=== PATIENT | male | born 1945 | race Caucasian/White ===

== ENCOUNTER 2017-08-11 10:40 | Inpatient (IN) | payer OTHER ==
[2017-08-11 11:03] LABS: % IMMATURE GRANULYOCYTES 0.7 % (0.0-1.1); ABSOLUTE IMMATURE GRANULOCYTES 0.07 10^3/uL (0.00-0.10); ADD DIFF? NO; ADD MORPH? NO; ADD SCAN? NO; ATYPICAL LYMPHOCYTE FLAG 10 (0-99); FRAGMENT RBC FLAG 0 (0-99); HEMATOCRIT 45.9 % (40.0-51.0); HEMOGLOBIN 15.3 g/dL (13.7-17.5); LEFT SHIFT FLG 10 (0-99); LIPEMIA HEMOLYSIS FLAG 80 (0-99); MEAN CELL HEMOGLOBIN 33.1 pg (27.9-34.1); MEAN CELL HEMOGLOBIN CONCENTR. 33.3 g/dL (32.4-36.7); MEAN CELL VOLUME 99.4 fL (81.5-99.8); MEAN PLATELET VOLUME 9.3 fL (8.7-11.7); PLATELET CLUMPS FLAG 0 (0-99); PLATELET COUNT 178 10^3/uL (150-400); RED BLOOD CELL COUNT 4.62 10^6/uL (4.40-6.38); RED CELL DISTRIBUTION WIDTH 14.6 % (11.5-15.2)
--- NOTE | 2017-08-11 11:11 | CPEKG ---
Heart Rate: 128 RR Interval: 469 P-R Interval: 116 QRSD Interval: 80 QT Interval: 320 QTC Interval: 467 P [place]: 77 QRS [place]: -21 T Wave [place]: 86 EKG Severity - OTHERWISE NORMAL ECG - EKG Impression: SINUS TACHYCARDIA EKG Impression: BORDERLINE LEFT AXIS DEVIATION Electronically Signed By: Marya Mckeon 11-Aug-2017 14:52:48
[2017-08-11 11:15] LABS: ANION GAP 15 mEq/L (8-16); CALCIUM 8.9 mg/dL (8.5-10.4); CARBON DIOXIDE 27 mEq/l (22-31); CHLORIDE 98 mEq/L (97-110); CREATININE 1.3 mg/dL (0.7-1.3); GLOMERULAR FILTRATION RATE 54; GLUCOSE 108 mg/dL (70-100); SODIUM 140 mEq/L (134-144)
[2017-08-11 11:34] LABS: ALBUMIN 4.2 g/dL (3.5-5.0); BILIRUBIN,TOTAL 1.5 mg/dL (0.1-1.4); BILIRUBIN-CONJUGATED 0.5 mg/dL (0.0-0.5); TOTAL PROTEIN 7.9 g/dL (6.3-8.2)
--- NOTE | 2017-08-11 11:49 | EDPHY ---
H & P Time Seen by Provider: 08/11/17 11:24 HPI/ROS: CHIEF COMPLAINT: Left-sided chest pain, shortness of breath HISTORY OF PRESENT ILLNESS: 72 year old male with alcoholism presents with left -sided chest pain and shortness of breath. Onset of left-sided chest pain 5 days ago. The chest pain increases with movement and with deep inspiration. The chest pain is moderate to severe. Associated with gradually increasing shortness of breath. No change in chronic cough. No fever or leg swelling. No prior history of pulmonary embolism. REVIEW OF SYSTEMS: Constitutional: No fever, no chills Eyes: No visual changes ENT: No sore throat Gastrointestinal: No nausea, no vomiting, no abdominal pain Genitourinary: no dysuria Musculoskeletal: No leg pain or swelling Skin: No rash Neurological: No headache, no weakness Psychiatric: No depression Past Medical/Surgical History: Denies Social History: No PCP, has not seen a PCP in years Drinks a 12 pack of beer a week. Smoking Status: Never smoked Physical Exam: General Appearance: Alert, cranky Eyes: Pupils equal and round, no conjunctival pallor or injection ENT, Mouth: Mucous membranes moist Neck: Normal inspection Respiratory: normal inspection, no c/w tenderness, scattered expiratory wheezing, rales at left base Cardiovascular: Regular tachycardia Gastrointestinal: Abdomen is soft and nontender Neurological: A&O, nonfocal exam Skin: Warm and dry, no rash Extremities: no tenderness Psychiatric: Mood and affect normal Constitutional: Initial Vital Signs Temperature (C) 36.7 C 08/11/17 10:40 Heart Rate 135 H 08/11/17 10:40 Respiratory Rate 16 08/11/17 10:40 Blood Pressure 106/81 H 08/11/17 10:40 O2 Sat (%) 94 08/11/17 10:40 O2 Delivery Mode Nasal Cannula O2 (L/minute) 2 Allergies/Adverse Reactions: No Known Allergies Allergy (Unverified 01/13/12 13:48) Home Medications: Medication Instructions Recorded NK [No Known Home Meds] 08/11/17 Medical Decision Making - Diagnostics EKG Interpretation: EKG interpreted by me reveals sinus tachycardia, rate 128, no ST or T segment changes. Imaging Results: Imaging Impressions Chest X-Ray 08/11/17 10:56 Impression: Left lower lobe infiltrate at the costophrenic angle that is nonspecific. This could represent early developing pneumonia, or sequela of previous insult, since the comparison is 7 years old. Chest/Thorax CTA 08/11/17 11:45 Impression: 1. Pulmonary embolism to the right upper lobe and left lower lobe. 2. Early parenchymal hemorrhage or infarction at the periphery of the left lower lobe. 3. 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 Findings and recommendations discussed with Dr. Marya Branham at 1242 hours on August 11, 2017. Final report concurs with initial preliminary interpretation. ED Course/Re-evaluation: This patient presents with left-sided chest pain, hypoxia and tachycardia. Chest x-ray reveals a small left lower lobe infiltrate. Clinically, he does not have pneumonia, given lack of fever or change in cough. Given symptomatology, I have a high clinical suspicion for pulmonary embolism and will proceed with CT pulmonary angiogram to rule out pulmonary embolism. Morphine IV given for pain control. CT pulmonary angiogram read by Dr. Blanca Middleton reveals pulmonary embolism and the left lower lobe and right upper lobe. Heparin per weight based protocol initiated. The hospitalist service was consulted for admission. Patient's blood pressure was normal throughout his emergency department stay. He remained tachycardiac, oxygen saturation 94% on 2 L. He is an appropriate patient to go to the [facility] floor. Differential Diagnosis: Differential diagnosis includes though it is not limited to pneumonia, pneumothorax, pulmonary embolism, aortic dissection, pericarditis, acute coronary syndrome. - Data Points Medications Given: Discontinued Medications Albuterol/Ipratropium (Duoneb) 3 ml IH EDNOW ONE Stop: 08/11/17 11:51 Last Admin: 08/11/17 12:32 Dose: 3 ml Sodium Chloride (Ns) 500 mls @ 1,000 mls/hr IV EDNOW ONE PRN Reason: Protocol Stop: 08/11/17 12:19 Last Admin: 08/11/17 12:31 Dose: 500 mls Heparin Sodium (Porcine) (Heparin 50 Units/Ml (Premix)) 500 mls @ 0 mls/hr IV EDNOW ONE; Per Protocol PRN Reason: Protocol Stop: 08/11/17 12:49 Last Admin: 08/11/17 13:51 Dose: 500 mls Morphine Sulfate (Morphine) 4 mg IVP EDNOW ONE Stop: 08/11/17 11:00 Last Admin: 08/11/17 11:02 Dose: 4 mg Departure - Departure Disposition: [facility]
[2017-08-11] MEDS ORDERED: NS 500 ML IV ONE (11:50)
[2017-08-11] MEDS ORDERED: IPRATROPIUM/ALBUTEROL 3 ML DEYVIAL IH ONE (11:50)
[2017-08-11] MEDS ORDERED: IOPAMIDOL (ISOVUE 370) 100 ML BTL IV ONE (11:53)
[2017-08-11] MEDS ORDERED: HEPARIN/DEXTROSE 500 ML IV ONE (12:48)
[2017-08-11 13:05] LABS: INR 1.03 (0.83-1.16); PROTIME(PATIENT) 13.4 SEC (12.0-15.0)
[2017-08-11 13:06] LABS: APTT 33.3 SEC (23.0-38.0)
[2017-08-11] MEDS ORDERED: HEPARIN 10,000 UNIT/10 ML MDV ONE (13:25)
[2017-08-11] MEDS ORDERED: ONDANSETRON DISINTEGRATING 4 MG TAB PO PRN (14:40)
[2017-08-11] MEDS ORDERED: ONDANSETRON 4 MG/2 ML VIAL IVP PRN (14:40)
[2017-08-11] MEDS ORDERED: TEMAZEPAM 15 MG CAP PO PRN (14:40)
[2017-08-11] MEDS ORDERED: ACETAMINOPHEN 325 MG TAB PO PRN (14:40)
[2017-08-11] MEDS ORDERED: HEPARIN 10,000 UNIT/10 ML MDV IVP PRN (14:41)
[2017-08-11] MEDS ORDERED: HEPARIN/DEXTROSE 500 ML IV SCH (14:45)
[2017-08-11] MEDS ORDERED: NS 1,000 ML IV SCH (14:45)
--- NOTE | 2017-08-11 15:35 | GHP ---
[f rep st] HISTORY AND PHYSICAL DATE OF ADMISSION: 08/11/2017 CHIEF COMPLAINT: Chest pain. HISTORY OF PRESENT ILLNESS: A 72-year-old man who does not seek medical care, presents with left-marina ed chest pain. He has been feeling short of breath for a few days. Chest pain is pleuritic. He has a chronic cough as he is a smoker. This has not really changed. He has had no recent travel. He h as no lower extremity edema. He has no cancer that he knows of, but has not seen a doctor nor has he had any cancer screening. He has no relatives who have a history of clots. PAST MEDICAL/SURGICAL HISTORY: Denies. MEDICATIONS: He takes no medications. ALLERGIES: No known drug allergies. FAMILY HISTORY: No clots. SOCIAL HISTORY: He lives by himself. He drinks about a 12-pack a week. He is currently smoking. Bill cook has lived in the area since about 1983. He previously worked in construction. REVIEW OF SYSTEMS: A 10-point review of systems is conducted and is negative, except per HPI. PHYSICAL EXAM: VITAL SIGNS: Blood pressure 111/76, heart rate 109, initially 135, respiration rate 18, saturating 95% on 3 L, temperature is 37.3. GENERAL: The patient is a pleasant man who is in mi ld distress. HEENT: Shows him to be normocephalic, atraumatic. CARDIOVASCULAR: Shows him to be ta chycardic. There are no murmurs, rubs, or gallops. PULMONARY: Shows left basilar rales, otherwise he is clear bilaterally. ABDOMEN: Soft, nontender, nondistended. SKIN: Shows no rash. : Shows no Dominguez. NEUROLOGIC: Shows him to be alert and oriented x3. He is moving all extremities. PSYCH IATRIC: Shows a normal mood and affect. LABS: White count is 10.3. INR is 1. Basic metabolic panel is unremarkable. Troponin is 0.018, BN P is 375. DATA: 1. I discussed this with Dr. Mckeon. Will admit to med/surg. 2. I reviewed his CT angiogram this shows PE in the right upper lobe and left lower lobe, with some early parenchymal hemorrhage or infarct periphery of the left lower lobe. He does have high-grade st enosis of the origin of the celiac trunk. 3. ECG, which I personally viewed and interpreted, shows sinus tachycardia. IMPRESSION AND PLAN: 1. Pulmonary embolus: He is hypoxic and tachycardic, but not hypotensive. I suspect there is somew hat of a chronic component to his hypoxia. No clear risk factors. Will get echocardiogram to evalua te for right heart strain and check another troponin. Will also check lower extremity ultrasounds fo r risk stratification. He will be treated with unfractionated heparin overnight. Could transition t o an oral agent tomorrow. If insurance will pay and he can afford, I think NOAC would be appropriate given his lack of any previous medical care. 2. Alcohol: He tells me he has never had withdrawal. He tells me he does not really drink very muc h, one to two beers a day with his dinner. I will not start CIWA now, but if he starts to show signs of withdrawal, which he is not currently displaying, would treat him with benzodiazepines. 3. Tobacco use: He declines a nicotine patch. I do not think he is interested in cessation at all. 4. Mesenteric atherosclerosis: This is another reason to anticoagulate him. /[id number]/MODL
--- NOTE | 2017-08-11 16:13 | ECHO ---
[email or web address] [address] [address] Main: [phone] Fax: Transthoracic Echocardiogram Name: RAISA BOURGEOIS MR#: [id number] Study Date: 08/11/2017 Study Time: 03:03 PM Date of : 1945 Age: 72 year(s) Height: 180.3 cm (71 in.) Weight: 63.5 kg (140 lb.) BSA: 1.81 m2 Gender: Male Examination: Echo Indication: PE Image Quality: Contrast: Requested by: Jace Woodard BP: 144 mmHg/98 mmHg Heart Rate: Rhythm: Indication: PE Procedure Staff Transporter Driver: Leticia Castillo Physician: Norris Garcia Requesting Provider: Conclusions: Normal size left ventricle. The ejection fraction is estimated to be 60-65 %. Mild mitral valve regurgitation is present. Mild tricuspid regurgitation is present. RVSP is 44mmHG.. Measurements: Chambers Valvular Assessment AV/MV Valvular Assessment TV/PV Normal Normal Normal Name Value Range Name Value Range Name Value Range Ao Yudelka (MM): 3.3 cm (2.2 cm-3.7 AV Vmax: 0.91 m/s (1 m/s-1.7 TR Vmax: 3.11 mm/s ( - ) cm) m/s) TR PGmax: 39 mmHg ( - ) IVSd (2D): 0.5 cm (0.6 cm-1.1 AV maxP mmHg ( - ) syst. PAP: 44 mmHg ( - ) cm) MV E Vmax: 0.70 m/s ( - ) LVDd (2D): 4.1 cm (4.2 cm-5.9 MV A Vmax: 0.94 m/s ( - ) cm) MV E/A: 0.74 ( - ) LVPWd (2D): 0.6 cm (0.6 cm-1 cm) EF Range: 60-65 % Continued Measurements: Chambers Valvular Assessment AV/MV Valvular Assessment TV/PV Name Value Name Value Name Value LADs: 3.9 cm MV E/E' Septal: 13.10 CVP (est.): 5 mmHg LADs Lon.8 cm MV E/E' Lateral: 9.70 LA Area: 17.4 cm2 Patient: RAISA BOURGEOIS Study Date: 08/11/2017 Page 1 of 2 03:03 PM Findings: Left Ventricle: Normal size left ventricle. The ejection fraction is estimated to be 60-65 %. Right Ventricle: Normal size right ventricle. Left Atrium: The left atrium is normal in size. Right Atrium: The right atrium is normal in size. Mitral Valve: Mild mitral annular calcification. Mild mitral valve regurgitation is present. Aortic Valve: The aortic valve opens well.. Tricuspid Valve: The tricuspid valve appears normal. Mild tricuspid regurgitation is present. The pulmonary artery pressure is mildly increased. RVSP is 44mmHG.. Pulmonic Valve: Pulmonary valve not well visualized. Pericardium: No pericardial effusion. There is pericardial fat. (No Signature Object) Patient: RAISA BOURGEOIS Study Date: 08/11/2017 Page 2 of 2 03:03 PM [id number]
--- NOTE | 2017-08-11 17:53 | PDMN ---
Medical Necessity Medical necessity: Patient meets INPT criteria per physician note and MCG M-290 PE (pt presents w/left-sided chest pain and shortness of breath; chest CT shows PE to RUL and LLL suggestive of early hemorrhage or infarction; remains tachycardiac at 110 p initial treatment and on supplemental O2; anticipated LOS > 2 midnights for anticoagulation/IV Heparin gtt and IV hydration.). .
[2017-08-11] MEDS: BEER 1 EACH EA PO SCH (19:13)
[2017-08-11 20:03] LABS: % IMMATURE GRANULYOCYTES 0.5 % (0.0-1.1); ABSOLUTE IMMATURE GRANULOCYTES 0.04 10^3/uL (0.00-0.10); ADD DIFF? NO; ADD MORPH? NO; ADD SCAN? NO; ATYPICAL LYMPHOCYTE FLAG 30 (0-99); FRAGMENT RBC FLAG 0 (0-99); HEMATOCRIT 36.6 % (40.0-51.0); HEMOGLOBIN 12.5 g/dL (13.7-17.5); LEFT SHIFT FLG 0 (0-99); LIPEMIA HEMOLYSIS FLAG 90 (0-99); MEAN CELL HEMOGLOBIN 33.3 pg (27.9-34.1); MEAN CELL HEMOGLOBIN CONCENTR. 34.2 g/dL (32.4-36.7); MEAN CELL VOLUME 97.6 fL (81.5-99.8); MEAN PLATELET VOLUME 9.4 fL (8.7-11.7); PLATELET CLUMPS FLAG 10 (0-99); PLATELET COUNT 145 10^3/uL (150-400); RED BLOOD CELL COUNT 3.75 10^6/uL (4.40-6.38); RED CELL DISTRIBUTION WIDTH 14.3 % (11.5-15.2)
[2017-08-11 20:14] LABS: INR 1.34 (0.83-1.16); PROTIME(PATIENT) 16.6 SEC (12.0-15.0)
[2017-08-11 20:56] LABS: APTT > 250.0 SEC (23.0-38.0)
[2017-08-12] MEDS: HYDROmorphONE/DILAUDID 1 MG/ML INJ IVP PRN (00:06)
[2017-08-12] MEDS: HYDROCODONE/APAP 10/325 TAB PO PRN ×3 (01:09→20:42)
[2017-08-12 03:38] LABS: % IMMATURE GRANULYOCYTES 0.5 % (0.0-1.1); ABSOLUTE IMMATURE GRANULOCYTES 0.04 10^3/uL (0.00-0.10); ADD DIFF? NO; ADD MORPH? NO; ADD SCAN? NO; ATYPICAL LYMPHOCYTE FLAG 20 (0-99); FRAGMENT RBC FLAG 0 (0-99); HEMATOCRIT 37.2 % (40.0-51.0); HEMOGLOBIN 12.7 g/dL (13.7-17.5); LEFT SHIFT FLG 10 (0-99); LIPEMIA HEMOLYSIS FLAG 90 (0-99); MEAN CELL HEMOGLOBIN 33.4 pg (27.9-34.1); MEAN CELL HEMOGLOBIN CONCENTR. 34.1 g/dL (32.4-36.7); MEAN CELL VOLUME 97.9 fL (81.5-99.8); MEAN PLATELET VOLUME 9.2 fL (8.7-11.7); PLATELET CLUMPS FLAG 0 (0-99); PLATELET COUNT 149 10^3/uL (150-400)
[2017-08-12 04:00] LABS: ALANINE AMINOTRANSFERASE 26 IU/L (21-72); ALKALINE PHOSPHATASE 82 IU/L (38-126); ANION GAP 10 mEq/L (8-16); ASPARTATE AMINOTRANSFERASE 25 IU/L (17-59); BILIRUBIN,TOTAL 0.7 mg/dL (0.1-1.4); CALCIUM 7.9 mg/dL (8.5-10.4); CARBON DIOXIDE 23 mEq/l (22-31); CHLORIDE 102 mEq/L (97-110); CREATININE 1.1 mg/dL (0.7-1.3); GLOMERULAR FILTRATION RATE > 60; GLUCOSE 114 mg/dL (70-100); POTASSIUM 4.2 mEq/L (3.5-5.2); SODIUM 135 mEq/L (134-144); TOTAL PROTEIN 5.9 g/dL (6.3-8.2)
--- NOTE | 2017-08-12 09:28 | HOSPPROG ---
Hospitalist Progress Note Assessment/Plan: PE - +right heart strain on echo, requiring 4 LPM, currently on heparin drip. -d/c heparin, change to lovenox 1 mg / kg BID -I'm concerned about his compliance with DOAC, will start coumadin and arrange [facility] coumadin clinic monitoring. -may be candidate for home health INR monitoring, CM consult requested -needs outpt heme f/u given unprovoked event, plan for extended duration anticoagulation -outpt cancer screening (c-scope, PSA, etc) Alcohol use disorder - getting daily beer, no e/o withdrawal Tobacco use disorder Mesenteric atherosclerosis - outpt f/u Full code Dispo - CM consult requested. Pt has no PCP, not engaged in health care system. Consider for INR monitoring vs [facility] PCP and coumadin clinic at [facility] Subjective: Pt feels ok. Denies CP or SOB. He wants to go home and roll a joint. No fevers. Eating well. Objective: Vital Signs Temp Pulse Resp BP Pulse Ox 36.6 C 108 H 20 130/76 H 4 L 08/12/17 08:00 08/12/17 08:00 08/12/17 08:00 08/12/17 08:00 08/12/17 08:00 Laboratory Results 08/12/17 03:20 08/12/17 03:20 08/11/17 08/12/17 08/13/17 05:59 05:59 05:59 Intake Total 500 Balance 500 PT 13.4 SEC (12.0-15.0) 08/11/17 Unknown INR 1.03 (0.83-1.16) 08/11/17 Unknown - Physical Exam Constitutional: no apparent distress Eyes: PERRL Ears, Nose, Mouth, Throat: moist mucous membranes Cardiovascular: regular rate and rhythym Respiratory: no respiratory distress, inspiratory crackles Gastrointestinal: normoactive bowel sounds, soft, non-tender abdomen Skin: warm Musculoskeletal: full muscle strength Neurologic: AAOx3 Psychiatric: interacting appropriately ICD10 Worksheet Patient Problems: Problems Problem Status Onset Pulmonary embolism Acute - ICD10 Problem Qualifiers (1) Pulmonary embolism Qualifiers: Pulmonary embolism type: other Chronicity: acute Acute cor pulmonale presence: without acute cor pulmonale Qualified Code(s): I26.99 - Other pulmonary embolism without acute cor pulmonale
[2017-08-12] MEDS: ENOXAPARIN 60 MG/0.6 ML SYR SC SCH ×2 (10:50→20:42)
--- NOTE | 2017-08-12 13:53 | ASMTCASEMG ---
Living Arrangements What is your living Answers: Alone arrangement? Who do you live with? Type Of Residence What kind of residence do Answers: Apartment you live in? Discharge Plan Comments Coordination Status Comments Notes: Pt is a 72 y/o man admitted for pulmonary embolism. CM spoke w/ Dr. Germain regarding dispo planning. Pt needs coumadin going forward. CM scheduled pt to f/u w/ Moriah Dillon, his outpatient PCP. CM inputted pts appointment into the discharge section of [facility]. PT has been ordered. CM awaiting recommendations. Needs are TBD at this time. CM available for d/c needs. Date Signed: 08/12/2017 01:53 PM Electronically Signed By:DYLAN Moncada
[2017-08-12] MEDS: WARFARIN SODIUM 5 MG TAB PO SCH (15:31)
[2017-08-12] MEDS: BEER 1 EACH EA PO SCH (19:34)
[2017-08-13] MEDS: HYDROCODONE/APAP 10/325 TAB PO PRN (04:30)
[2017-08-13 05:01] LABS: INR 1.04 (0.83-1.16); PROTIME(PATIENT) 13.5 SEC (12.0-15.0)
[2017-08-13] MEDS: HYDROmorphONE/DILAUDID 1 MG/ML INJ IVP PRN (09:03)
[2017-08-13] MEDS: ENOXAPARIN 60 MG/0.6 ML SYR SC SCH ×2 (10:27→21:05)
--- NOTE | 2017-08-13 11:41 | HOSPPROG ---
Hospitalist Progress Note Assessment/Plan: PE - +right heart strain on echo, requiring 3 LPM, persistent left chest pain -cont lovenox 1 mg / kg BID, pharmacy dosing coumadin, follow daily INR -may be candidate for home health INR monitoring, CM consult requested -outpt heme f/u given unprovoked event, plan for extended duration anticoagulation -outpt cancer screening (c-scope, PSA, etc) Alcohol use disorder - getting daily beer, no e/o withdrawal Tobacco use disorder - query underlying COPD ?COPD - wheezing noted today -start duonebs -oral prednisone burst -outpt PFT's -home Rx for spiriva, albuterol Mesenteric atherosclerosis - outpt f/u Full code Dispo - Cont inpt. CM following. Pt has no PCP, not engaged in health care system. Consider HH for INR monitoring vs [facility] PCP and coumadin clinic at [facility] Subjective: Pt c/o left chest pain. Some SOB. Eating well. No fevers. Objective: Vital Signs Temp Pulse Resp BP Pulse Ox 36.8 C 102 H 20 125/78 H 97 08/13/17 11:28 08/13/17 11:28 08/13/17 11:28 08/13/17 11:28 08/13/17 11:28 Laboratory Results 08/13/17 04:29 08/12/17 03:20 08/12/17 08/13/17 08/14/17 05:59 05:59 05:59 Intake Total 500 850 Balance 500 850 PT 13.5 SEC (12.0-15.0) 08/13/17 04:29 INR 1.04 (0.83-1.16) 08/13/17 04:29 - Physical Exam Constitutional: no apparent distress Eyes: PERRL Ears, Nose, Mouth, Throat: moist mucous membranes Cardiovascular: regular rate and rhythym Respiratory: no respiratory distress, reduced air movement, expiratory wheeze Gastrointestinal: normoactive bowel sounds, soft, non-tender abdomen Skin: warm Musculoskeletal: full muscle strength Neurologic: AAOx3 Psychiatric: poor insight, poor judgement ICD10 Worksheet Patient Problems: Problems Problem Status Onset Pulmonary embolism Acute - ICD10 Problem Qualifiers (1) Pulmonary embolism Qualifiers: Pulmonary embolism type: other Chronicity: acute Acute cor pulmonale presence: without acute cor pulmonale Qualified Code(s): I26.99 - Other pulmonary embolism without acute cor pulmonale
[2017-08-13] MEDS: LIDOCAINE 1% 5 ML SDV IF ONE ×2 (11:44→17:35)
[2017-08-13] MEDS: IPRATROPIUM/ALBUTEROL 3 ML DEYVIAL IH SCH ×3 (11:54→21:24)
[2017-08-13] MEDS: HYDROCODONE/APAP 5/325 TAB PO PRN (12:23)
[2017-08-13] MEDS: predniSONE 20 MG TAB PO SCH (12:24)
--- NOTE | 2017-08-13 14:40 | ASMTCMCOM ---
CM Note CM Note Notes: CM spoke w/ Dr. Germain regarding d/c POC. CM met w/ pt for dispo planning. Pt is agreeable to having RN, HC services through [facility]. CM called [facility] and they are able to accommodate pt. CM to follow. Date Signed: 08/13/2017 02:39 PM Electronically Signed By:DYLAN Moncada
[2017-08-13] MEDS: WARFARIN SODIUM 5 MG TAB PO SCH (16:12)
[2017-08-13] MEDS: BEER 1 EACH EA PO SCH (19:09)
[2017-08-14 05:16] LABS: INR 1.25 (0.83-1.16); PROTIME(PATIENT) 15.7 SEC (12.0-15.0)
[2017-08-14] MEDS: IPRATROPIUM/ALBUTEROL 3 ML DEYVIAL IH SCH ×2 (05:50→11:54)
[2017-08-14] MEDS: ENOXAPARIN 60 MG/0.6 ML SYR SC SCH ×2 (08:30→21:52)
[2017-08-14] MEDS: predniSONE 20 MG TAB PO SCH (08:31)
[2017-08-14] MEDS: chlordiazePOXIDE 25 MG CAP PO PRN ×2 (13:46→16:38)
--- NOTE | 2017-08-14 14:02 | CPEKG ---
Heart Rate: 120 RR Interval: 500 P-R Interval: 124 QRSD Interval: 86 QT Interval: 332 QTC Interval: 470 P [place]: 78 QRS [place]: -5 T Wave [place]: 70 EKG Severity - OTHERWISE NORMAL ECG - EKG Impression: SINUS TACHYCARDIA EKG Impression: ATRIAL PREMATURE COMPLEX Electronically Signed By: Dominguez Sheth 14-Aug-2017 17:24:30
[2017-08-14] MEDS: LEVALBUTEROL 1.25 MG/3 ML DEYVIAL IH SCH (15:59)
--- NOTE | 2017-08-14 16:31 | HOSPPROG ---
Hospitalist Progress Note Assessment/Plan: * Acute PE with mild RH strain -SubQ Lovenox with transition to warfarin -needs to establish outpatient PCP * COPD exacerbation -prednisone, nebs * Sinus tachycardia - ? PE vs. Etoh withdrawal vs. nebs * Tobacco dependence * Mesenteric atherosclerosis - asymptomatic -check lipids Subjective: Wants to go home Objective: Vital Signs Temp Pulse Resp BP Pulse Ox 36.8 C 110 H 16 150/89 H 94 08/14/17 11:42 08/14/17 14:30 08/14/17 11:42 08/14/17 11:42 08/14/17 14:30 Laboratory Results 08/13/17 04:29 08/12/17 03:20 08/13/17 08/14/17 08/15/17 05:59 05:59 05:59 Intake Total 850 960 Balance 850 960 PT 15.7 SEC (12.0-15.0) H 08/14/17 04:26 INR 1.25 (0.83-1.16) H 08/14/17 04:26 EKG viewed, my personal interpretation is - sinus tachycardia CTA chest - + PE, possible early pulm infarct - Physical Exam Constitutional: no apparent distress, appears nourished, not in pain Cardiovascular: regular rate and rhythym, no murmur, rub, or gallop Respiratory: no respiratory distress, expiratory wheeze, inspiratory crackles, No rhonchi Gastrointestinal: normoactive bowel sounds, soft, non-tender abdomen, no palpable masses Skin: no rashes or abrasions, no fluctuance, no induration Neurologic: AAOx3, sensation intact bilaterally Psychiatric: interacting appropriately, not anxious, not encephalopathic, thought process linear ICD10 Worksheet Patient Problems: Problems Problem Status Onset Pulmonary embolism Acute
[2017-08-14] MEDS: WARFARIN SODIUM 5 MG TAB PO SCH (16:38)
[2017-08-14] MEDS: BEER 1 EACH EA PO SCH (18:09)
[2017-08-14] MEDS ORDERED: NS 1,000 ML IV ONE (18:16)
[2017-08-15] MEDS: LEVALBUTEROL 1.25 MG/3 ML DEYVIAL IH SCH ×4 (04:42→21:35)
[2017-08-15 05:17] LABS: % IMMATURE GRANULYOCYTES 0.8 % (0.0-1.1); ABSOLUTE IMMATURE GRANULOCYTES 0.07 10^3/uL (0.00-0.10); ADD DIFF? NO; ADD MORPH? NO; ADD SCAN? NO; ATYPICAL LYMPHOCYTE FLAG 10 (0-99); FRAGMENT RBC FLAG 0 (0-99); HEMATOCRIT 36.6 % (40.0-51.0); HEMOGLOBIN 12.1 g/dL (13.7-17.5); LEFT SHIFT FLG 0 (0-99); LIPEMIA HEMOLYSIS FLAG 80 (0-99); MEAN CELL HEMOGLOBIN 32.4 pg (27.9-34.1); MEAN CELL HEMOGLOBIN CONCENTR. 33.1 g/dL (32.4-36.7); MEAN CELL VOLUME 97.9 fL (81.5-99.8); MEAN PLATELET VOLUME 9.6 fL (8.7-11.7); PLATELET CLUMPS FLAG 10 (0-99); PLATELET COUNT 252 10^3/uL (150-400); RED BLOOD CELL COUNT 3.74 10^6/uL (4.40-6.38); RED CELL DISTRIBUTION WIDTH 13.8 % (11.5-15.2)
[2017-08-15 05:20] LABS: INR 1.53 (0.83-1.16); PROTIME(PATIENT) 18.4 SEC (12.0-15.0)
[2017-08-15 05:33] LABS: ANION GAP 10 mEq/L (8-16); CALCIUM 8.3 mg/dL (8.5-10.4); CARBON DIOXIDE 25 mEq/l (22-31); CHLORIDE 107 mEq/L (97-110); CHOLESTEROL 194 mg/dL (140-220); CHOLESTEROL/HDL RATIO 3.34 RATIO (1.00-4.97); GLOMERULAR FILTRATION RATE > 60; GLUCOSE 110 mg/dL (70-100); HIGH DENSITY LIPOPROTEIN 58 mg/dL (40-65); LDL/HDL RATIO 1.88 RATIO (1.00-3.64); LOW DENSITY LIPOPROTEIN 109 mg/dL (80-100); MAGNESIUM 1.6 mg/dL (1.6-2.3); NON-HIGH DENSITY LIPOPROTEIN 136 mg/dL (90-129); POTASSIUM 4.7 mEq/L (3.5-5.2); SODIUM 142 mEq/L (134-144); TRIGLYCERIDE 137 mg/dL (40-150); VERY LOW DENSITY LIPOPROTEINS 27 mg/dL (8-25)
[2017-08-15] MEDS: predniSONE 20 MG TAB PO SCH (07:38)
[2017-08-15] MEDS: HYDROCODONE/APAP 5/325 TAB PO PRN (07:38)
[2017-08-15] MEDS: ENOXAPARIN 60 MG/0.6 ML SYR SC SCH ×2 (07:38→20:19)
[2017-08-15] MEDS: THIAMINE HCL 500 MG in NS 100 ML IV SCH (07:39)
[2017-08-15] MEDS: TIOTROPIUM INHALER 18 MCG/DOSE 5 DOSE/MDI IH SCH (08:08)
--- NOTE | 2017-08-15 08:17 | CPEKG ---
Heart Rate: 132 RR Interval: 455 P-R Interval: 116 QRSD Interval: 86 QT Interval: 324 QTC Interval: 480 P [place]: 81 QRS [place]: -1 T Wave [place]: 65 EKG Severity - BORDERLINE ECG - EKG Impression: SINUS TACHYCARDIA EKG Impression: non-specific ST depression. Electronically Signed By: Dominguez Sheth 15-Aug-2017 15:51:49
[2017-08-15] MEDS: ATENOLOL 25 MG TAB PO SCH (10:47)
[2017-08-15] MEDS: WARFARIN SODIUM 5 MG TAB PO SCH (16:34)
--- NOTE | 2017-08-15 17:20 | HOSPPROG ---
Hospitalist Progress Note Assessment/Plan: * Acute PE with mild RH strain -SubQ Lovenox with transition to warfarin -refuses to do his own Lovenox injection -keep inpatient until therapeutic INR * COPD exacerbation -prednisone, nebs * Sinus tachycardia - ? PE vs. Etoh withdrawal vs. nebs -start low dose beta-will - atenolol * Tobacco dependence * Mesenteric atherosclerosis - asymptomatic -outpatient follow-up Subjective: No new complaints. Objective: Vital Signs Temp Pulse Resp BP Pulse Ox 36.7 C 109 H 18 135/72 H 93 08/15/17 16:00 08/15/17 16:00 08/15/17 16:00 08/15/17 16:00 08/15/17 16:00 Laboratory Results 08/15/17 04:25 08/15/17 04:25 08/14/17 08/15/17 08/16/17 05:59 05:59 05:59 Intake Total 960 1000 Balance 960 1000 PT 18.4 SEC (12.0-15.0) H 08/15/17 04:25 INR 1.53 (0.83-1.16) H 08/15/17 04:25 EKG viewed from last pm, my personal interpretation is - sinus tachycardia tele reviewed - intermittent sinus tachy up to 150 - Physical Exam Constitutional: no apparent distress, appears nourished, not in pain Cardiovascular: regular rate and rhythym, no murmur, rub, or gallop Respiratory: no respiratory distress, no rales or rhonchi, clear to auscultation Gastrointestinal: normoactive bowel sounds, soft, non-tender abdomen, no palpable masses Skin: no rashes or abrasions, no fluctuance, no induration Neurologic: AAOx3, sensation intact bilaterally Psychiatric: interacting appropriately, not anxious, not encephalopathic, thought process linear ICD10 Worksheet Patient Problems: Problems Problem Status Onset Pulmonary embolism Acute
[2017-08-15] MEDS: BEER 1 EACH EA PO SCH (19:11)
[2017-08-16 05:35] LABS: % IMMATURE GRANULYOCYTES 0.8 % (0.0-1.1); ABSOLUTE IMMATURE GRANULOCYTES 0.07 10^3/uL (0.00-0.10); ADD DIFF? NO; ADD MORPH? NO; ADD SCAN? NO; ATYPICAL LYMPHOCYTE FLAG 10 (0-99); FRAGMENT RBC FLAG 0 (0-99); HEMATOCRIT 35.3 % (40.0-51.0); HEMOGLOBIN 12.1 g/dL (13.7-17.5); LEFT SHIFT FLG 0 (0-99); LIPEMIA HEMOLYSIS FLAG 90 (0-99); MEAN CELL HEMOGLOBIN 33.4 pg (27.9-34.1); MEAN CELL HEMOGLOBIN CONCENTR. 34.3 g/dL (32.4-36.7); MEAN CELL VOLUME 97.5 fL (81.5-99.8); MEAN PLATELET VOLUME 9.6 fL (8.7-11.7); PLATELET CLUMPS FLAG 0 (0-99); PLATELET COUNT 257 10^3/uL (150-400); RED BLOOD CELL COUNT 3.62 10^6/uL (4.40-6.38); RED CELL DISTRIBUTION WIDTH 13.8 % (11.5-15.2)
[2017-08-16] MEDS: HYDROCODONE/APAP 5/325 TAB PO PRN ×2 (05:35→23:57)
[2017-08-16 05:44] LABS: ANION GAP 9 mEq/L (8-16); CALCIUM 8.3 mg/dL (8.5-10.4); CARBON DIOXIDE 24 mEq/l (22-31); CHLORIDE 107 mEq/L (97-110); GLOMERULAR FILTRATION RATE > 60; GLUCOSE 95 mg/dL (70-100); INR 1.93 (0.83-1.16); MAGNESIUM 1.5 mg/dL (1.6-2.3); POTASSIUM 4.3 mEq/L (3.5-5.2); PROTIME(PATIENT) 22.2 SEC (12.0-15.0); SODIUM 140 mEq/L (134-144)
[2017-08-16] MEDS: LEVALBUTEROL 1.25 MG/3 ML DEYVIAL IH SCH ×3 (08:37→22:11)
[2017-08-16] MEDS: TIOTROPIUM INHALER 18 MCG/DOSE 5 DOSE/MDI IH SCH (08:37)
[2017-08-16] MEDS: predniSONE 20 MG TAB PO SCH (10:29)
[2017-08-16] MEDS: ATENOLOL 25 MG TAB PO SCH (10:29)
[2017-08-16] MEDS: ENOXAPARIN 60 MG/0.6 ML SYR SC SCH ×2 (10:29→21:07)
[2017-08-16] MEDS: THIAMINE HCL 500 MG in NS 100 ML IV SCH (10:29)
[2017-08-16] MEDS ORDERED: MAGNESIUM SULF 2 GM/WATER 50 ML IV ONE (12:58)
--- NOTE | 2017-08-16 13:00 | HOSPPROG ---
Hospitalist Progress Note Assessment/Plan: * Acute PE with mild RH strain -SubQ Lovenox with transition to warfarin -refuses to do his own Lovenox injection -keep inpatient until therapeutic INR * COPD exacerbation -prednisone, nebs * Sinus tachycardia - ? PE vs. Etoh withdrawal vs. nebs -start low dose beta-will - atenolol * Tobacco dependence * Mesenteric atherosclerosis - asymptomatic -outpatient follow-up Subjective: Feels fine. Objective: Vital Signs Temp Pulse Resp BP Pulse Ox 36.6 C 105 H 19 100/59 L 90 L 08/16/17 11:54 08/16/17 11:54 08/16/17 11:54 08/16/17 11:54 08/16/17 11:54 Laboratory Results 08/16/17 04:18 08/16/17 04:18 08/15/17 08/16/17 08/17/17 05:59 05:59 05:59 Intake Total 1000 Balance 1000 PT 22.2 SEC (12.0-15.0) H 08/16/17 04:18 INR 1.93 (0.83-1.16) H 08/16/17 04:18 - Physical Exam Constitutional: no apparent distress, appears nourished, not in pain Cardiovascular: regular rate and rhythym, no murmur, rub, or gallop Respiratory: no respiratory distress, no rales or rhonchi, clear to auscultation Gastrointestinal: normoactive bowel sounds, soft, non-tender abdomen, no palpable masses Skin: no rashes or abrasions, no fluctuance, no induration Neurologic: AAOx3, sensation intact bilaterally Psychiatric: interacting appropriately, not anxious, not encephalopathic, thought process linear ICD10 Worksheet Patient Problems: Problems Problem Status Onset Pulmonary embolism Acute
[2017-08-16] MEDS: POTASSIUM/SODIUM PHOSPHATE 1 PKT PO SCH ×3 (14:29→21:06)
[2017-08-16] MEDS: WARFARIN SODIUM 5 MG TAB PO SCH (16:13)
--- NOTE | 2017-08-16 17:16 | ASMTCMCOM ---
CM Note CM Note Notes: Pt will likely dc home on Friday, has appt set up with Moriah Dillon as PCP, and will dc with BCKIARA (RN) and MD to add SW. CM spoke w/Evy from home health and notified her that pt will dc and may need education around community services to get to appointments. CM to give pt a cab voucher to get home. Current DC Plan: Dc home w/[facility] and cab home Date Signed: 08/16/2017 05:15 PM Electronically Signed By:Radha Morris RN
[2017-08-16] MEDS: BEER 1 EACH EA PO SCH (19:16)
[2017-08-17] MEDS ORDERED: WARFARIN SODIUM 5 MG TAB PO SCH
[2017-08-17] MEDS ORDERED: ATENOLOL 25 MG TAB PO SCH
[2017-08-17] MEDS ORDERED: LEVALBUTEROL INHALER 200 PUFFS/15 GM MDI IH SCH
[2017-08-17] MEDS ORDERED: TIOTROPIUM INHALER 18 MCG/DOSE 5 DOSE/MDI IH SCH
[2017-08-17] MEDS ORDERED: predniSONE 20 MG TAB PO SCH
[2017-08-17 05:51] LABS: ANION GAP 7 mEq/L (8-16); CALCIUM 8.5 mg/dL (8.5-10.4); CARBON DIOXIDE 26 mEq/l (22-31); CHLORIDE 106 mEq/L (97-110); CREATININE 1.1 mg/dL (0.7-1.3); GLOMERULAR FILTRATION RATE > 60; GLUCOSE 115 mg/dL (70-100); MAGNESIUM 1.8 mg/dL (1.6-2.3); POTASSIUM 5.3 mEq/L (3.5-5.2); SODIUM 139 mEq/L (134-144)
[2017-08-17 06:08] LABS: INR 2.07 (0.83-1.16); PROTIME(PATIENT) 23.4 SEC (12.0-15.0)
[2017-08-17 08:07] VITALS: BP 142/90; TEMP 97.9
[2017-08-17] MEDS: TIOTROPIUM INHALER 18 MCG/DOSE 5 DOSE/MDI IH SCH (09:16)
[2017-08-17] MEDS: LEVALBUTEROL 1.25 MG/3 ML DEYVIAL IH SCH ×2 (09:16→15:21)
[2017-08-17] MEDS: THIAMINE HCL 500 MG in NS 100 ML IV SCH (09:32)
[2017-08-17] MEDS: ATENOLOL 25 MG TAB PO SCH (09:33)
[2017-08-17] MEDS: predniSONE 20 MG TAB PO SCH (09:33)
[2017-08-17] MEDS: POTASSIUM/SODIUM PHOSPHATE 1 PKT PO SCH ×2 (09:33→12:31)
--- NOTE | 2017-08-17 10:15 | PDIAF ---
- Diagnosis Diagnosis: Acute PE, COPD exacerbation Code Status: Full Code - Medication Management Discharge Medications: Medications to Continue on Transfer Atenolol [Tenormin 25 mg (*)] 25 mg PO DAILY #30 tab 08/17/17 [Last Taken Unknown] Levalbuterol Inhaler [Xopenex Hfa Inhaler (*)] 1 puffs IH TID #1 mdi 08/17/17 [ Last Taken Unknown] Tiotropium Inhaler [Spiriva Handihaler] 18 mcg IH DAILY #1 mdi 08/17/17 [Last Taken Unknown] Warfarin Sodium [Coumadin 5MG (*)] 5 mg PO DAILY16 #30 tab 08/17/17 [Last Taken Unknown] predniSONE 40 mg PO DAILY #6 tablet 08/17/17 [Last Taken Unknown] Discharge Medications: Refer to the Discharge Home Medication list for PRN reason. - Orders Services needed: Home Care, Registered Nurse, Master Claims Correspondence Clerk, Physical Therapy, Occupational Therapy Home Care Face to Face: I certify that this patient was under my care and that I had the required [id number] encounter meeting the encounter requirements on the discharge day. My findings support the fact that the patient is homebound as defined in Home Care Face to Face Continued: CMS Chapter 7 Medicare Benefits Manual 30.1.1 , The condition of the patient is such that there exists a normal inability to leave home and consequently, leaving home would require a considerable and taxing effort. Diet Recommendation: no restrictions on diet - Labs/Radiology PT/INR Date: 08/19/17 (twice weekly) - Follow Up Care Current Providers and Referrals: NONE *PRIMARY CARE P,. [Unknown] - As per Instructions Moriah Dillon PA [Primary Care Provider] - 08/19/17 10:15 am
[2017-08-17 15:32] VITALS: PULSE 91; RESP 14; O2SAT 91
[2017-08-17] MEDS: WARFARIN SODIUM 5 MG TAB PO SCH (15:36)
--- NOTE | 2017-08-17 17:14 | ASDISCHSUM ---
Discharge Information Plan Status:Home with Home Health Medically Cleared to Leave: Discharge Date:08/17/2017 04:40 PM CM D/C Disposition:Home Health Service ADT D/C Disposition:Home Health Service Projected Discharge Date:08/17/2017 04:40 PM Transportation at D/C:Cab Voucher Discharge Delay Reason: Follow-Up Date:08/17/2017 04:40 PM Discharge Slot: Final Diagnosis: Placement Information Patient Contact Information Contact Name:RACHEL Relationship: Address: Home Phone: Work Phone: City: Alternate Phone: State/Unafinance Code: Email: Financial Information Financial Class: Primary Plan Desc:MEDICARE INPATIENT Primary Plan Number:[id number] Secondary Plan Desc: Secondary Plan Number: Assessment Information [facility] Initial CM Assessment Living Arrangements What is your living Answers: Alone arrangement? Who do you live with? Type Of Residence What kind of residence do Answers: Apartment you live in? Discharge Plan Comments Coordination Status Comments Notes: Pt is a 72 y/o man admitted for pulmonary embolism. CM spoke w/ Dr. Germain regarding dispo planning. Pt needs coumadin going forward. CM scheduled pt to f/u w/ Moriah Dillon, his outpatient PCP. CM inputted pts appointment into the discharge section of [facility]. PT has been ordered. CM awaiting recommendations. Needs are TBD at this time. CM available for d/c needs. Date Signed: 08/12/2017 01:53 PM Electronically Signed By:DYLAN Moncada [facility] IYN Progress Note CM Note CM Note Notes: YIN spoke w/ Dr. Germain regarding d/c POC. CM met w/ pt for dispo planning. Pt is agreeable to having RN, HC services through [facility]. CM called [facility] and they are able to accommodate pt. CM to follow. Date Signed: 08/13/2017 02:39 PM Electronically Signed By:DYLAN Moncada [facility] CM Progress Note CM Note CM Note Notes: Pt will likely dc home on Friday, has appt set up with Moriah Dillon as PCP, and will dc with [facility] (RN) and MD to add SW. CM spoke w/Evy from [employer] [facility] and notified her that pt will dc and may need education around community services to get to appointments. CM to give pt a cab voucher to get home. Current DC Plan: Dc home w/[facility] and cab home Date Signed: 08/16/2017 05:15 PM Electronically Signed By:Radha Morris RN [facility] CM Progress Note CM Note CM Note Notes: Pt dc'd home today, will be followed by [facility] for RN, SW services. Notified FUAD Ratliff RN w/[facility]. Met w/pt several times throughout day to determine how he would obtain his meds. We had planned to have [employer] delivery as pt does not drive but then it came to light that pt only has [facility]. After discussion w/ and w/CM Director, Farhana Kaminski, medications were MAP'ed through our pharmacy (oral meds very low cost, inhalers $103 combined). Discussed with pt medicare homebound limitations and confirmed address, pt agreeable. We discussed using grocery delivery services which he planned on doing and i gave him [employer] info. Pt has f/u appt scheduled; discussed w/pt how he would get there as he does not drive and does not have any friend/family to take him. He said he was not able to take bus as he got lost on it last time and pt says he is unable to pay for taxi. Taxi cab vouchers given for to and from MD appt and explained in detail to patient (OK'd by director). Informed [facility] RN importance of following up w/pt about getting to his MD appt this friday. [facility] but they will probably not see him til end of week, per Evy. Pt would benefit from getting tied in w/transport service like [employer]. YIN sent email to Ailyn to follow up w/pt as he may qualify for [facility] as supplement to [facility]. D/W MD KAREN. Date Signed: 08/17/2017 05:13 PM Electronically Signed By:Mary Forman RN Intervention Information
--- NOTE | 2017-08-17 22:13 | GDS ---
[f rep st] DISCHARGE SUMMARY DISCHARGE DIAGNOSES: 1. Acute pulmonary embolus with mild right heart strain. 2. Chronic obstructive pulmonary disease exacerbation. 3. Tobacco dependence. 4. Alcohol use. 5. Tachycardia. 6. Asymptomatic mesenteric atherosclerosis. HISTORY: The patient is a 72-year-old male who has not seen a physician for many years. He presente d with an acute pulmonary embolus. Echocardiogram showed mild right heart strain. He was started on subcutaneous Lovenox and transitioned to warfarin. He received a full 5 days of Lovenox here in the hospital as it was not felt he would be able to self-administer Lovenox at home. INR is greater jessica n 2 at discharge. He also had a COPD exacerbation and was treated with prednisone and nebs and was able to wean to room air prior to discharge. He had persistent sinus tachycardia throughout his hospitalization. At this point, I do not think it is due to his pulmonary embolus anymore since his pulmonary embolus has been fully treated. He did not have significant alcohol withdrawal. His nebulizers were changed to Xopenex to try to reduce tac hycardia. He was started on a low-dose beta will as he also had a little hypertension and did wel l on atenolol, which I will continue at discharge. Incidentally noted on CAT scan is mesenteric atherosclerosis, which is asymptomatic. He can follow u p as an outpatient regarding risk factor management. Potentially aspirin, a statin drug, and smoking cessation could be advised. The patient has definite concerns regarding compliance post discharge, and Case Management did extens kostas work to try to maximize his success with discharge. Home health was set up for close monitoring, including a social work job titles. We did arrange a primary care provider to see him and follow warfarin chloé kellogg. He was counseled at length regarding his need for adequate outpatient followup. DISCHARGE MEDICATIONS: Please see computer record for full detailed list. New medications: 1. Warfarin 5 mg p.o. daily. 2. Prednisone 40 mg p.o. daily for 3 more days. 3. Atenolol 25 mg p.o. daily. 4. Xopenex 1 puff t.i.d. 5. Spiriva 1 puff daily. ADDITIONAL DISCHARGE INSTRUCTIONS: 1. Home health for INR levels first check on August 19. 2. Follow up with primary care. Arrangements made with MIKE Villeda. Greater than 30 minutes' time was spent arranging this discharge. Patient was seen and examined by adarsh cook on the day of discharge. /[id number]/BENJAL
== END 2017-08-17 16:40 | disposition home health service (06) | DRG 176 ==
LOC: EDBD → EDUNIT# → F3E 14:36
PROVIDERS: ADMIT Student in an Organized Health Care Education/Training Program; ATTEND Student in an Organized Health Care Education/Training Program
DX: I26.99 Other pulmonary embolism without acute cor pulmonale (principal); J44.1 Chronic obstructive pulmonary disease with (acute) exacerbation; I51.89 Other ill-defined heart diseases; R00.0 Tachycardia, unspecified; K55.1 Chronic vascular disorders of intestine; F10.10 Alcohol abuse, uncomplicated; F17.210 Nicotine dependence, cigarettes, uncomplicated
CPT/HCPCS: 85520-90; 96374; 97116-GP; 97161-GP; 97165-GO; 97530-GO; 97535-GO; G8978-GP-CJ; G8979-GP-CI; G8987-GO-CJ; G8988-GO-CI; J1170; J1644; J1650; J3411; J7512; Q9967

== ENCOUNTER 2018-11-25 10:49 | Emergency (ER) | payer OTHER ==
--- NOTE | 2018-11-25 11:34 | EDPHY ---
H & P Time Seen by Provider: 11/25/18 11:33 HPI/ROS: Chief complaint. Knee pain HPI. Patient was seen by the PA and not by myself. ROS 10 systems were reviewed and negative with the exception of the elements mentioned in the history of present illness Smoking Status: Heavy smoker Constitutional: Initial Vital Signs Temperature (C) 36.9 C 11/25/18 10:53 Heart Rate 115 H 11/25/18 10:53 Respiratory Rate 18 11/25/18 10:53 Blood Pressure 137/77 H 11/25/18 10:53 O2 Sat (%) 95 11/25/18 10:53 O2 Delivery Mode Room Air Allergies/Adverse Reactions: No Known Allergies Allergy (Verified 11/25/18 10:57) Home Medications: Medication Instructions Recorded Lidocaine [Lidoderm] 1 each TP DAILY #14 adh..patch 11/25/18 Medical Decision Making - Diagnostics Imaging Results: Imaging Impressions Knee X-Ray 11/25/18 11:56 Impression: 1. No acute osseous abnormality seen right knee. 2. Arteriosclerotic vascular calcifications noted. - Data Points Medications Given: Discontinued Medications Miscellaneous Medication (Icy Hot Lidocaine/Menthol 4%/1% Patch) 1 patch TD EDNOW ONE Stop: 11/25/18 11:57 Last Admin: 11/25/18 12:15 Dose: 1 patch Departure - Departure Disposition: Home, Routine, Self-Care Clinical Impression: Knee pain, right Condition: Good Instructions: Swollen Knee Joint (ED) Additional Instructions: DISCHARGE INSTRUCTIONS FROM YOUR DOCTOR Thank you for visiting our emergency department today. You were treated by a physician senior it assistant today and your case was reviewed with our ED Attending physician. Please keep in mind that discharge from the emergency department does not mean that there is nothing wrong - it simply means that we have not identified an emergency condition that requires further evaluation or treatment in the hospital. You should always plan to follow up with primary care for re- evaluation of your condition in the next 2-3 days. If you have been referred to a specialist, please call as soon as possible (today or tomorrow) to schedule your follow up appointment at the appropriate time. THE XRAYS OF YOUR KNEE SHOW NO SIGN OF FRACTURE BUT YOU HAVE ARTHRITIS IN YOUR JOINTS. WE DO NOT PERFORM MRI'S IN THE EMERGENCY ROOM TO EVALUATED LIGAMENTS/ MUSCLES. WE PLACED A LIDODERM PATCH ON THE KNEE WHICH CAN BE KEPT IN PLACE FOR 12 HR. KEEP THE KNEE PATCH FREE FOR 12 HR BEFORE APPLYING A NEW PATCH. THESE CAN BE PURCHASED AT THE [facility] STORE. AN ORTHOPEDIC REFERRAL WAS GIVEN, PLEASE CALL THEM FOR FOLLOW-UP APPOINTMENT. RETURN TO THE EMERGENCY DEPARTMENT FOR INCREASED KNEE PAIN, SWELLING, REDNESS, CALF PAIN OR SWELLING, FEVER, OR ANY OTHER CONCERNS. People present with illnesses and injuries in different ways, and it is always possible that we have missed something. You may always return for re-evaluation if symptoms worsen or if they are not improving or if you develop new/different symptoms. Again, thank you for choosing our emergency department. We hope that you feel better. Referrals: David Bergman MD [Medical Doctor] - 2-3 days, call for appt. NONE *PRIMARY CARE P,. [Primary Care Provider] - As per Instructions Prescriptions: Lidocaine [Lidoderm] 1 each TP DAILY #14 adh..patch
[2018-11-25] MEDS ORDERED: LIDOCAINE 4%/MENTHOL 1% PATCH TD ONE (11:56)
--- NOTE | 2018-11-25 11:59 | EDPHY ---
General - History Smoking Status: Heavy smoker Time Seen by Provider: 11/25/18 11:33 Narrative: CLINICAL IMPRESSION: Atraumatic right knee pain ASSESSMENT/PLAN: 73-year-old male presents to the emergency department with 3 days of atraumatic medial right knee pain. No history of fall although patient has a small abrasion to the lateral aspect of the right knee. X-ray show no evidence of acute fracture or dislocation. Patient has degenerative changes noted. He has no asymmetric leg swelling, calf pain erythema or warmth, or clinical suspicion for DVT. Initially tachycardic but repeat vitals by myself show heart rate of 90. Patient has no complaints of chest pain or shortness of breath. Distal neurovascular exam is intact. He was given a Lidoderm patch, refused oral analgesics, was provided an orthopedic referral, and was able to ambulate out the door to a taxi cab. Case Management met with the patient as well to help arrange for Meals [employer] wheels as well as social work evaluation. DIFFERENTIAL DX: Differential includes but not limited to acute fracture, strain/sprain, joint dislocation, soft tissue contusion ED PROCEDURES: X-rays reviewed by myself with no evidence of acute fracture or dislocation. ED COURSE: 11:55 a.m.. Patient seen by myself. Plan for x-ray, Lidoderm patch, orthopedic referral. Patient seen by case management as well. CHIEF COMPLAINT: Right knee pain HPI: 73-year-old male presents to the emergency department with atraumatic right knee pain x4 days. Patient states the pain is now such that he cannot walk. He reports that he does fall but does not remember falling 4 days ago. He awoke with pain. There is no associated redness, swelling, numbness. No reported upper leg, hip, lower leg, ankle or foot pain. No history of gout. No prior history of orthopedic surgery or injury to this knee. No associated fever or chills. He has not tried anything for pain and states "I am not a pill taker". PAST MEDICAL HISTORY: None reported Pertinent Past Surgical History: None reported Social History: Smokes heavily, lives in a trailer home, seen by case management today. REVIEW OF SYSTEMS: All other systems negative Constitutional: No fever, no chills Musculoskeletal: No deformity, + joint pain Skin: No rashes, color change or open wounds. Neurological: No sensory loss or weakness. PHYSICAL EXAM: General Appearance: Alert, oriented, appropriate for age, cooperative, NAD, well hydrated, non-toxic appearing, tachycardic, hypertensive, repeat heart rate by myself and 90, no hypoxia. Neurological: Alert and oriented x 3, normal sensation of extremities Skin: Warm, dry, no rashes, no nodules on palpation. Musculoskeletal: Reproducible pain to the medial aspect of the right knee. No obvious joint effusion or significant swelling. No erythema, warmth or signs of septic joint or septic arthritis. Small superficial abrasion to the lateral aspect of the right knee. No reproducible pain to the femur, tib-fib, ankle, or foot. Temperature between both legs is symmetric. Distal neurovascular exam intact. MEDICAL DECISION MAKING: Patient was seen independently. Secondary supervising physician at time of evaluation was Dr. Herrera. Diagnosis: Right knee arthritis. New, requires workup Summary: See assessment and plan for summary of ED visit Independent visualization of images, tracing, or specimens yes. Patient Progress: Improved, stable for discharge. (Ed Valentin) Medical Decision Making: I did not see this patient while he was in the emergency department. However his care was discussed with the PA while the patient was in the department. I agree with treatment plan and management (Sharon,Howard S) - Diagnostics Imaging Results: Imaging Impressions Knee X-Ray 11/25/18 11:56 Impression: 1. No acute osseous abnormality seen right knee. 2. Arteriosclerotic vascular calcifications noted. - Objective Vital Signs: Initial Vital Signs Temperature (C) 36.9 C 11/25/18 10:53 Heart Rate 115 H 11/25/18 10:53 Respiratory Rate 18 11/25/18 10:53 Blood Pressure 137/77 H 11/25/18 10:53 O2 Sat (%) 95 11/25/18 10:53 O2 Delivery Mode Room Air Allergies/Adverse Reactions: No Known Allergies Allergy (Verified 11/25/18 10:57) Home Medications: Medication Instructions Recorded Lidocaine [Lidoderm] 1 each TP DAILY #14 adh..patch 11/25/18 Medications Given: Discontinued Medications Miscellaneous Medication (Icy Hot Lidocaine/Menthol 4%/1% Patch) 1 patch TD EDNOW ONE Stop: 11/25/18 11:57 Last Admin: 11/25/18 12:15 Dose: 1 patch Departure - Departure Disposition: Home, Routine, Self-Care Clinical Impression: Knee pain, right Qualifiers: Chronicity: acute Qualified Code(s): M25.561 - Pain in right knee Condition: Good Instructions: Swollen Knee Joint (ED) Additional Instructions: DISCHARGE INSTRUCTIONS FROM YOUR DOCTOR Thank you for visiting our emergency department today. You were treated by a physician assistant district attorney today and your case was reviewed with our ED Attending physician. Please keep in mind that discharge from the emergency department does not mean that there is nothing wrong - it simply means that we have not identified an emergency condition that requires further evaluation or treatment in the hospital. You should always plan to follow up with primary care for re- evaluation of your condition in the next 2-3 days. If you have been referred to a specialist, please call as soon as possible (today or tomorrow) to schedule your follow up appointment at the appropriate time. THE XRAYS OF YOUR KNEE SHOW NO SIGN OF FRACTURE BUT YOU HAVE ARTHRITIS IN YOUR JOINTS. WE DO NOT PERFORM MRI'S IN THE EMERGENCY ROOM TO EVALUATED LIGAMENTS/ MUSCLES. WE PLACED A LIDODERM PATCH ON THE KNEE WHICH CAN BE KEPT IN PLACE FOR 12 HR. KEEP THE KNEE PATCH FREE FOR 12 HR BEFORE APPLYING A NEW PATCH. THESE CAN BE PURCHASED AT THE [facility]. AN ORTHOPEDIC REFERRAL WAS GIVEN, PLEASE CALL THEM FOR FOLLOW-UP APPOINTMENT. RETURN TO THE EMERGENCY DEPARTMENT FOR INCREASED KNEE PAIN, SWELLING, REDNESS, CALF PAIN OR SWELLING, FEVER, OR ANY OTHER CONCERNS. People present with illnesses and injuries in different ways, and it is always possible that we have missed something. You may always return for re-evaluation if symptoms worsen or if they are not improving or if you develop new/different symptoms. Again, thank you for choosing our emergency department. We hope that you feel better. Referrals: NONE *PRIMARY CARE P,. [Primary Care Provider] - As per Instructions David Bergman MD [Medical Doctor] - 2-3 days, call for appt. Prescriptions: Lidocaine [Lidoderm] 1 each TP DAILY #14 adh..patch
[2018-11-25 13:01] VITALS: BP 135/78
--- NOTE | 2018-11-25 14:44 | ASMTCMCOM ---
CM Note CM Note Notes: Patient is a 73 year old, thin male. He lives alone in a trailer home in [place] and admits to drinking a "case of beer or so" every week. Patient denies having a PCP or going to the doctor. Denies family or friends. He admits to being lonely and acknowledges that he does not eat very well/much. When this CM asks about his drinking patient states, "I only drink a case of beer everyweek. That's like only 3 beers a day". Patient states that he does not have a car and does not drive. When asked how he gets his beer or groceries, he states "I have them delivered". Patient tells me that he is not interested in going to a doctor or establishing a doctor. His last ED visit was in August,. "I don't get sick". This CM discussed community resources patient may be eligible for and have arranged for a 5 day "free" trial of [employer] (confirmed with Genny) [phone] which will start on Friday. Patient states that he does not want any "handouts" and I have assured him that these services are available to him as a Medicare patient and that I believe he may also be eligible for Medicaid benefits that would help provide additional services. I have spoken with Irma with [facility] [phone] who will follow up with patient for Medicaid and community based services. I have LM with Anjel at [facility] regading potential services as well. Patient confirms his home phone number and is aware that he will be contacted directly from someone from the services discussed. I have explained that the MOW is a free trial and that he will be able to continue this services if desired, but is not obligated to do so. Date Signed: 11/25/2018 02:43 PM Electronically Signed By:Mala Arredondo RN
--- NOTE | 2018-11-25 14:45 | ASMTCAGE ---
CAGE Additional Comments See CM note Date Signed: 11/25/2018 02:44 PM Electronically Signed By:Mala Arredondo RN
[2018-11-25] MEDS ORDERED: PATCH REMOVAL 1 EA PATCH TD SCH (21:00)
== END 2018-11-25 13:04 | disposition home or self-care (01) ==
LOC: EDUNIT#
DX: S80.211A Abrasion, right knee, initial encounter (principal); M25.561 Pain in right knee; I70.0 Atherosclerosis of aorta; F17.200 Nicotine dependence, unspecified, uncomplicated; W19.XXXA Unspecified fall, initial encounter; Y92.9 Unspecified place or not applicable; Y99.9 Unspecified external cause status; Y93.9 Activity, unspecified

== ENCOUNTER 2018-12-19 09:14 | Emergency (ER) | payer OTHER ==
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
[2018-12-19] MEDS ORDERED: TDAP ADULT 0.5 ML INJ (BOOSTRIX) IM ONE (10:06)
[2018-12-19 11:00] VITALS: BP 123/86
--- NOTE | 2018-12-19 11:52 | ASMTCMCOM ---
CM Note CM Note Notes: Reviewed chart. Pt presented to the Emergency Department via EMS with complaints of toe pain. Of note, pt called EMS because his TV had stopped working. History includes COPD, smoking, PE, alcohol use. Asked to pt by Galo Singh PA-C for assistance coordinating discharge. Per Galo, pt is refusing care and is requesting to leave against medical advice (AMA). Met with pt. Pt states he is not wishing to leave AMA. Pt states he wants to know "what the hell is wrong with his toe." CM asked pt if he was open to an x-ray and further treatment. The pt states "that's why I came in." Update provided to Galo Singh. CM and Galo to bedside. Galo explained limitations of treatment within the Emergency Department for ongoing fungal infections. Pt agreed to a recommended tetanus shot and x-ray. Pt reports that he lives alone and does not have any family or friend support. The pt states he never goes to the doctor, because he is "usually healthy." Pt denies having a PCP at this time; stating he "hasn't been to the doctor since 1985." CM discussed the importance of ongoing follow up care and treatment. Pt verbalized understanding. Pt received tetanus shot and an x-ray. Information provided on following up with [facility] and Dr. Rodriguez, a pinking machine operator. This CM attempted to leave a voice message for [facility] to follow up with pt on Friday12/21/18, but the voicemail box was full. CM reiterated the importance of scheduling a follow up appointment. It is unclear if pt will be compliant with these instructions. Pt ambulates utilizing a cane at baseline. Pt denies having the means to return home. Taxi voucher provided. [employer] called on pt's behalf. Per prior CM notes, it appears the pt was previously set up with [employer]. Pt denies needs at this time. Pt anxious to d/c home. Pt states he is . Pt denies knowing whether he has active [place] benefits. This CM LVM for Irma with [facility] for additional follow up and resources. CM will attempt to follow up with pt on Friday to assist with scheduling an appointment at [facility] and/or the pinking machine operator. CM available for any further issues or concerns. Date Signed: 12/19/2018 11:49 AM Electronically Signed By:Lisa South RN
== END 2018-12-19 11:14 | disposition home or self-care (01) ==
LOC: EDUNIT#
DX: B35.1 Tinea unguium (principal); Z23 Encounter for immunization